=== PATIENT | male | born 1955 | race Two or more races ===

== ENCOUNTER 2020-12-28 10:29 | Outpatient (REF) | payer MEDICARE, MEDICAID, SELFPAY ==
[2020-12-28 11:05] LABS: MANUAL DIFF FLAG NO
[2020-12-28 11:10] LABS: Basophils Absolute Auto 0.1 X10*3/uL (0.0-0.2); Basophils Percent Auto 0.8 % (0-2); Eosinophils Absolute Auto 0.1 X10*3/uL (0.0-0.4); Eosinophils Percent Auto 1.1 % (0-4); Hematocrit 40.8 % (42-52); Hemoglobin 13.2 g/dl (14.0-18.0); Imm Gran Abs Auto 0.02 X10*3/uL (0.00-0.03); Imm Gran Pct Auto 0.3 % (0.0-0.4); Lymphocytes Absolute Auto 3.1 X10*3/uL (1.2-4.9); Mean Corpuscular HGB Conc 32.4 g/dl (31.0-36.0); Mean Corpuscular Hemoglobin 31.6 pg (27.0-33.0); Mean Corpuscular Volume 97.6 fL (80-98); Mean Platelet Volume 10.1 fL (9.4-12.4); Monocytes Absolute Auto 1.1 X10*3/uL (0.1-1.2); Monocytes Percent Auto 14.7 % (2-11); Neutrophils Percent Auto 41.1 % (45-73); Platelet Count 220 X10*3/uL (160-400); Red Blood Count 4.18 X10*6/uL (4.60-5.80); Red Cell Distribution Width 13.8 % (11.0-16.0); White Blood Count 7.3 X10*3/uL (4.8-10.8)
[2020-12-28 11:22] LABS: INTERNATIONAL NORM RATIO 1.1 (0.9-1.1); Prothrombin Time 12.9 SEC (9.9-13.0)
[2020-12-28 11:43] LABS: Alanine Aminotransferase 11 U/L (0-40); Albumin Level 4.2 g/dL (3.5-5.0); Alkaline Phosphatase 63 U/L (39-117); Aspartate Amino Transferase 29 U/L (5-37); Bilirubin Direct 0.2 mg/dL (0.0-0.5); Bilirubin Total 0.4 mg/dL (0.0-1.0); Blood Urea Nitrogen 19 mg/dL (9-16); Estimated Glomerular Filt Rate > 60
[2020-12-28 11:52] LABS: Total Protein 10.6 g/dL (6.5-8.0)
[2020-12-29 12:31] LABS: Alpha Fetoprotein 2.4 ng/mL (<6.1)
[2020-12-31 11:37] LABS: HCV Log PCR <1.18 NOT DETECTED Log IU/mL (NOT DETECTED); HepC Viral Load <15 NOT DETECTED IU/mL (NOT DETECTED)
== END 2020-12-28 10:30 | disposition home or self-care (01) ==
LOC: HO.LAB 10:29
PROVIDERS: Visit Provider Internal Medicine
DX: K76.9 Liver disease, unspecified (principal); R93.2 Abnormal findings on diagnostic imaging of liver and biliary tract; Z86.19 Personal history of other infectious and parasitic diseases
CPT/HCPCS: 36415; 80076; 82105; 82565; 84520; 85025; 85610; 87522

== ENCOUNTER 2021-01-05 08:44 | Outpatient (REF) | payer MEDICARE, MEDICAID, SELFPAY ==
--- NOTE | ~2021-01-05 | MR_ITS ---
EXAMINATION: MR ABDOMEN WITHOUT AND WITH CONTRAST CLINICAL INFORMATION: Pancreatic cyst followup. COMPARISON: Previous abdominal MRIs September 2018 and September 2019 and previous abdominal ultrasounds most recent October 2017 TECHNIQUE: MR abdomen was performed without and with use of 6 mL intravenous Gadavist gadolinium contrast. Postcontrast images are performed in multiphase dynamic sequences. Imaging was performed in 3 planes. MRCP sequences were performed. FINDINGS: LUNG BASES: The visualized lung bases are unremarkable. LIVER, GALLBLADDER, AND BILIARY TREE: The liver is normal in size, smooth in contour, and normal in signal. No focal hepatic lesion or biliary ductal dilatation is present. There are scattered small transient areas of early arterial phase enhancement seen in the liver similar to previous exam. Again, these are seen on early arterial phase sequences and not seen on later phase sequences post-enhancement and not seen on precontrast-enhanced sequences and probably represent transient perfusion effects. There are gallstones in the gallbladder. The gallbladder wall is normal-appearing. There is no pericholecystic fluid. PANCREAS: The cyst in the body of the pancreas adjacent to the main pancreatic duct appears unchanged. No solid component or evidence of enhancement is seen. The main pancreatic duct is normal in caliber. The pancreas is otherwise normal in signal. SPLEEN: Normal. ADRENAL GLANDS: Normal. KIDNEYS AND URETERS: The kidneys are normal in size, shape, and enhance symmetrically. No hydronephrosis. No perinephric stranding. GASTROINTESTINAL TRACT: No bowel obstruction. No ascites or fluid collection. ABDOMINAL WALL: No significant hernia is appreciated. LYMPH NODES: No lymphadenopathy. VASCULAR: Unremarkable. OSSEOUS STRUCTURES: Marrow signal normal. MR/MR abdomen wo/w con IMPRESSION: Stable small cyst in the body of the pancreas from previous exams. Gallstones.
== END 2021-01-05 08:45 | disposition home or self-care (01) ==
LOC: HO.MRI 08:44
PROVIDERS: Visit Provider Internal Medicine
DX: K76.9 Liver disease, unspecified (principal); K86.2 Cyst of pancreas; R93.2 Abnormal findings on diagnostic imaging of liver and biliary tract; Z86.19 Personal history of other infectious and parasitic diseases
CPT/HCPCS: 74183; A9585

== ENCOUNTER 2022-02-28 15:15 | Outpatient (REF) | payer MEDICARE, MEDICAID, SELFPAY ==
[2022-02-28 16:20] LABS: Basophils Absolute Auto 0.1 X10*3/uL (0.0-0.2); Basophils Percent Auto 1.1 % (0-2); Eosinophils Absolute Auto 0.1 X10*3/uL (0.0-0.4); Eosinophils Percent Auto 1.6 % (0-4); Hematocrit 36.6 % (42.0-52.0); Hemoglobin 12.1 g/dl (14.0-18.0); Imm Gran Abs Auto 0.03 X10*3/uL (0.00-0.03); Imm Gran Pct Auto 0.4 % (0.0-0.4); Lymphocytes Absolute Auto 3.2 X10*3/uL (1.2-4.9); Lymphocytes Percent Auto 37.8 % (20-40); MANUAL DIFF FLAG SCAN; Mean Corpuscular HGB Conc 33.1 g/dl (31.0-36.0); Mean Corpuscular Hemoglobin 34.1 pg (27.0-33.0); Mean Corpuscular Volume 103.1 fL (80.0-98.0); Mean Platelet Volume 10.9 fL (9.4-12.4); Monocytes Absolute Auto 0.8 X10*3/uL (0.1-1.2); Monocytes Percent Auto 9.5 % (2-11); Neutrophils Absolute Auto 4.3 x10*3/uL (2.0-8.3); Neutrophils Percent Auto 49.6 % (45-73); Platelet Count 200 X10*3/uL (160-400); Red Blood Count 3.55 X10*6/uL (4.60-5.80); Red Cell Distribution Width 13.1 % (11.0-16.0); SCAN SMEAR FLAG 1; White Blood Count 8.6 X10*3/uL (4.8-10.8)
[2022-02-28 16:23] LABS: INTERNATIONAL NORM RATIO 1.1 (0.9-1.1); Prothrombin Time 12.3 SEC (10.0-13.1)
[2022-02-28 16:45] LABS: Alanine Aminotransferase 10 U/L (0-40); Albumin Level 4.5 g/dL (3.5-5.0); Alkaline Phosphatase 62 U/L (39-117); Aspartate Amino Transferase 21 U/L (5-37); Bilirubin Direct < 0.2 mg/dL (0.0-0.5); Bilirubin Total 0.4 mg/dL (0.0-1.0); Blood Urea Nitrogen 23 mg/dL (9-16); Estimated Glomerular Filt Rate > 60; Total Protein 8.2 g/dL (6.5-8.0)
[2022-02-28 16:48] LABS: SLIDE REVIEW VERIFIED
[2022-03-01 08:56] LABS: Carbohydrate Antigen 19-9 14 U/mL (<34)
[2022-03-02 13:02] LABS: Alpha Fetoprotein 2.4 ng/mL (<6.1)
[2022-03-07 23:51] LABS: FIB-ALT 10 U/L (9-46); FIB-Alpha-2-Macroglobulin 424 mg/dL (106-279); FIB-Apolipoprotein A1 133 mg/dL (94-176); FIB-GGT 11 U/L (3-70); FIB-Haptoglobin 159 mg/dL (43-212); FIB-Total Bilirubin 0.3 mg/dL (0.2-1.2); Liver Fibrosis Score 0.47; Liver Fibrosis Stage F1-F2; Nec Inflam Act Grade A0; Nec Inflam Act Score 0.03
== END 2022-02-28 15:16 | disposition home or self-care (01) ==
LOC: HO.LAB 15:15
PROVIDERS: Visit Provider Internal Medicine
DX: K86.2 Cyst of pancreas (principal); Z86.19 Personal history of other infectious and parasitic diseases
CPT/HCPCS: 36415; 80076; 81596; 82105; 82565; 84520; 85025; 85610; 86301

== ENCOUNTER 2022-04-05 12:42 | Outpatient (REF) | payer MEDICARE, MEDICAID, SELFPAY ==
--- NOTE | ~2022-04-05 | MR_ITS ---
EXAMINATION: MR ABDOMEN WITHOUT AND WITH CONTRAST CLINICAL INFORMATION: Follow-up pancreatic cyst. COMPARISON: MR abdomen 01/05/2021. TECHNIQUE: MR abdomen was performed without and with use of 6 mL intravenous Gadavist gadolinium contrast. Postcontrast images are performed in multiphase dynamic sequences. Imaging was performed in 3 planes. 3-D MRCP images were obtained. FINDINGS: LUNG BASES: The visualized lung bases are unremarkable. LIVER, GALLBLADDER, AND BILIARY TREE: Redemonstration of innumerable arterial phase enhancing liver observations, not seen on later phase postcontrast images and not seen on precontrast sequences, favored to represent transient perfusional abnormalities. There is no significant signal loss in the opposed phase dual echo images to suspect the presence of hepatic steatosis. The liver is normal in shape. Cholelithiasis and fundal gallbladder adenomyomatosis. No gallbladder wall thickening or pericholecystic inflammatory changes. No biliary ductal dilatation. PANCREAS: Evaluation is limited due to motion. A cluster of cysts versus septated T2 bright avascular lesion in the pancreatic body is difficult to accurately measured due to extension across different axial planes and motion, approximately measuring in conjunction 1.2 cm. This is not convincingly changed when compared to priors, dating back to 09/16/2018. There appears to be communication with the main pancreatic duct, best seen on MRCP images and the main pancreatic duct is nondilated. SPLEEN: Splenectomy. ADRENAL GLANDS: Normal. KIDNEYS AND URETERS: The kidneys are normal in size, shape, and enhance symmetrically. No hydronephrosis. No perinephric stranding. GASTROINTESTINAL TRACT: No bowel obstruction. No ascites or fluid collection. ABDOMINAL WALL: No significant hernia is appreciated. LYMPH NODES: No pathologically enlarged lymph nodes. VASCULAR: Abdominal aorta is of normal diameter. OSSEOUS STRUCTURES: Marrow signal normal. MR/MR abdomen wo/w con IMPRESSION: 1. No significant interval change in cluster of cysts versus septated 1.2 cm cystic lesion in the pancreatic body, possibly representing a sidebranch IPMN. Per ACR white paper* on the management of incidental pancreatic cysts, for cysts measuring less than 1.5 cm for patients 65 to 79 years of age at presentation recommendations are: Every other year follow-up with contrast enhanced MR or CT pancreas protocol x5 for a total of 10 years of documented stability. If stable for 10 years, no further follow-up is required. This study documents stability when compared to baseline MR of the abdomen from 09/16/2018. *Thelma AJ, Genia ME, Lee DE, Haresh IR, Sahyne DV, Prashanth E, Maryan WR, Christi LL, Carly PV. Management of Incidental Pancreatic Cysts: A White Paper of the ACR Incidental Findings Committee. J Am Roxanne Radiol. 2017 Jhonathan;14(7):911-923. doi: 10.1016/j.jacr.2017.03.010. Epub 2016October 27. PMID: [id number]. 2. Redemonstration of innumerable arterial phase enhancing liver observations, not seen on later phase postcontrast images and not seen on precontrast enhanced sequences, favoring to represent transient perfusional abnormalities. 3. Cholelithiasis and fundal gallbladder adenomyomatosis.
== END 2022-04-05 12:43 | disposition home or self-care (01) ==
LOC: HO.MRI 12:42
PROVIDERS: Visit Provider Internal Medicine
DX: K86.2 Cyst of pancreas (principal)
CPT/HCPCS: 74183; A9585

== ENCOUNTER 2023-12-17 15:12 | Outpatient (REF) | payer MEDICARE, SELFPAY ==
--- NOTE | ~2023-12-17 | MR_ITS ---
EXAMINATION: MR ABDOMEN WITHOUT AND WITH CONTRAST CLINICAL INFORMATION: Follow up pancreatic cyst. COMPARISON: Abdominal MRI 04/05/2022. TECHNIQUE: MR abdomen was performed without and with use of 6 mL intravenous Gadavist gadolinium contrast. Postcontrast images are performed in multiphase dynamic sequences. Imaging was performed in 3 planes. FINDINGS: LUNG BASES: The visualized lung bases are unremarkable. LIVER, GALLBLADDER, AND BILIARY TREE: Redemonstration of innumerable predominantly peripherally situated arterially hyperenhancing foci that are not visualized on later phases of contrast and do not demonstrate clear T2 correlates, most suggestive of perfusional abnormalities. Cholelithiasis. No significant gallbladder wall thickening or pericholecystic inflammatory changes to suspect acute cholecystitis. PANCREAS: The quite complex multiseptated, lobulated T2 hyperintense cystic-appearing abnormality in the pancreatic body is increased in size measuring approximately 3.4 x 1.7 x 2.7 cm (4:14 and 3:21) previously 1.2 x 0.6 x 1.6 cm. On post contrast images there is suggestion of associated low-level enhancement (images 47 and 49 series 100) and on T2 images there is heterogeneous intermediate T2 internal signal intensity. Downstream from this, there is new abrupt cut off of the main pancreatic duct with new significant downstream tortuosity and dilatation of the main pancreatic duct measuring up to 0.8 cm in diameter, as well as increased downstream pancreatic parenchyma atrophy. Upstream from these findings, the main pancreatic duct and pancreatic parenchyma at the level of the neck, head and uncinate process are normal in appearance. SPLEEN: Splenectomy. ADRENAL GLANDS: Normal. KIDNEYS AND URETERS: A few subcentimeter T2 hyperintense simple-appearing cysts for which no imaging followup is recommended. GASTROINTESTINAL TRACT: No evidence of bowel obstruction or ascites. ABDOMINAL WALL: No significant hernia is appreciated. LYMPH NODES: No lymphadenopathy. VASCULAR: Unremarkable. OSSEOUS STRUCTURES: No acute or aggressive-appearing osseous findings. ADDITIONAL FINDINGS: Enlarged prostate with protrusion of the central gland into the bladder base (sagittal image 19 series 5). MR/MR abdomen wo/w con IMPRESSION: Complex abnormal pancreas with findings that are highly concerning for malignancy at the level of the body where there is abrupt cut off of the duct with downstream ductal dilatation and parenchymal atrophy. Findings might be related with de alice pancreatic adenocarcinoma or malignant transformation of a mucinous neoplasm, as the transition point is at the site of an increased quite complex cystic lesion. Redemonstration of innumerable arterially hyperenhancing foci with a predominant peripheral distribution, not seen on later phases of contrast and without clear T2 correlate, possible related with perfusional changes. Attention on followup in future examinations is recommended. GI/pancreatologist Oncology consultation is advised. The report will be called to the ordering clinician by a [facility] Physician Testing Coordinator.
[2023-12-17] MEDS: gadobutroL 7.5 ML VIAL IVPUSH (16:08)
[2023-12-17 16:37] LABS: MANUAL DIFF FLAG NO
[2023-12-17 17:12] LABS: Basophils Absolute Auto 0.1 X10*3/uL (0.0-0.2); Eosinophils Absolute Auto 0.2 X10*3/uL (0.0-0.4); Eosinophils Percent Auto 2.1 % (0-4); Hemoglobin 11.6 g/dl (14.0-18.0); Imm Gran Abs Auto 0.02 X10*3/uL (0.00-0.03); Imm Gran Pct Auto 0.2 % (0.0-0.4); Lymphocytes Absolute Auto 2.8 X10*3/uL (1.2-4.9); Lymphocytes Percent Auto 33.4 % (20-40); Mean Corpuscular HGB Conc 34.1 g/dl (31.0-36.0); Mean Corpuscular Volume 99.7 fL (80.0-98.0); Mean Platelet Volume 10.7 fL (9.4-12.4); Monocytes Absolute Auto 0.9 X10*3/uL (0.1-1.2); Monocytes Percent Auto 10.9 % (2-11); Neutrophils Absolute Auto 4.3 x10*3/uL (2.0-8.3); Neutrophils Percent Auto 52.4 % (45-73); Platelet Count 203 X10*3/uL (160-400); Red Blood Count 3.41 X10*6/uL (4.60-5.80); Red Cell Distribution Width 14.3 % (11.0-16.0); White Blood Count 8.2 X10*3/uL (4.8-10.8)
[2023-12-17 17:24] LABS: Prothrombin Time 12.6 SEC (11.1-13.3)
[2023-12-17 17:58] LABS: Alanine Aminotransferase 12 U/L (0-40); Albumin Level 4.4 g/dL (3.5-5.0); Alkaline Phosphatase 52 U/L (39-117); Aspartate Amino Transferase 20 U/L (5-37); Bilirubin Direct 0.1 mg/dL (0.0-0.5); Bilirubin Total 0.3 mg/dL (0.0-1.0); Blood Urea Nitrogen 36 mg/dL (9-16); Estimated Glomerular Filt Rate 53; Total Protein 7.8 g/dL (6.5-8.0)
[2023-12-19 09:13] LABS: Carbohydrate Antigen 19-9 20 U/mL (<34)
[2023-12-19 09:47] LABS: Alpha Fetoprotein 2.4 ng/mL (<6.1)
[2023-12-19 11:18] LABS: HCV Log PCR <1.18 NOT DETECTED Log IU/mL (NOT DETECTED); HepC Viral Load <15 NOT DETECTED IU/mL (NOT DETECTED)
[2023-12-27 17:43] LABS: FIB-ALT 10 U/L (9-46); FIB-Alpha-2-Macroglobulin 360 mg/dL (106-279); FIB-Apolipoprotein A1 140 mg/dL (94-176); FIB-GGT 13 U/L (3-70); FIB-Haptoglobin 141 mg/dL (43-212); FIB-Total Bilirubin 0.3 mg/dL (0.2-1.2); Liver Fibrosis Score 0.42; Liver Fibrosis Stage F1-F2; Nec Inflam Act Grade A0; Nec Inflam Act Score 0.03
== END 2023-12-17 15:13 | disposition home or self-care (01) ==
LOC: HO.MRI 15:12
PROVIDERS: Visit Provider Internal Medicine
DX: K86.2 Cyst of pancreas (principal); K76.9 Liver disease, unspecified; R93.2 Abnormal findings on diagnostic imaging of liver and biliary tract; Z86.19 Personal history of other infectious and parasitic diseases
CPT/HCPCS: 36415; 74183; 80076; 81596; 82105; 82565; 84520; 85025; 85610; 86301; 87522; A9585

== ENCOUNTER 2025-03-19 08:26 | Outpatient (REF) | payer OTHER, SELFPAY ==
[2025-03-19 08:44] LABS: MANUAL DIFF FLAG NO
[2025-03-19 09:04] LABS: Hematocrit 38.2 % (42.0-52.0); Hemoglobin 13.0 g/dl (14.0-18.0); Imm Gran Abs Auto 0.02 X10*3/uL (0.00-0.03); Imm Gran Pct Auto 0.3 % (0.0-0.4); Lymphocytes Absolute Auto 2.1 X10*3/uL (1.2-4.9); Mean Corpuscular HGB Conc 34.0 g/dl (31.0-36.0); Mean Corpuscular Hemoglobin 34.5 pg (27.0-33.0); Mean Corpuscular Volume 101.3 fL (80.0-98.0); NRBC Abs Auto 0.000 X10*3/uL (0.0-0.012); NRBC Pct Auto 0.0 /100WBC (0.0-0.2); Platelet Count 250 X10*3/uL (160-400); Red Blood Count 3.77 X10*6/uL (4.60-5.80); White Blood Count 6.7 X10*3/uL (4.8-10.8)
[2025-03-19 09:09] LABS: INTERNATIONAL NORM RATIO 1.1 (0.9-1.1); Prothrombin Time 12.1 SEC (10.9-12.4)
[2025-03-19 09:40] LABS: Alanine Aminotransferase 13 U/L (0-40); Albumin Level 4.8 g/dL (3.5-5.0); Alkaline Phosphatase 66 U/L (39-117); Anion Gap 9 (12-20); Aspartate Amino Transferase 26 U/L (5-37); Blood Urea Nitrogen 16 mg/dL (9-16); Calcium 9.6 mg/dL (8.4-10.2); Carbon Dioxide 28 mmol/L (22-29); Chloride 108 mmol/L (96-108); Estimated Glomerular Filt Rate > 60; Potassium 4.2 mmol/L (3.3-5.1); Sodium 141 mmol/L (135-145); Total Protein 8.0 g/dL (6.5-8.0)
[2025-03-24 13:38] LABS: FIB-ALT 7 U/L (9-46); FIB-Alpha-2-Macroglobulin 418 mg/dL (106-279); FIB-Apolipoprotein A1 160 mg/dL (94-176); FIB-GGT 11 U/L (3-70); FIB-Haptoglobin 131 mg/dL (43-212); FIB-Total Bilirubin 0.4 mg/dL (0.2-1.2); Liver Fibrosis Score 0.49; Liver Fibrosis Stage F2; Nec Inflam Act Grade A0; Nec Inflam Act Score 0.02
== END 2025-03-19 08:27 | disposition home or self-care (01) ==
LOC: HO.LAB 08:26
PROVIDERS: Visit Provider Internal Medicine
DX: Z51.81 Encounter for therapeutic drug level monitoring (principal); K86.2 Cyst of pancreas; R93.2 Abnormal findings on diagnostic imaging of liver and biliary tract; Z86.19 Personal history of other infectious and parasitic diseases
CPT/HCPCS: 36415; 80048; 80076; 81596; 82105; 85025; 85610; 86301

== ENCOUNTER 2025-04-07 11:07 | Outpatient (REF) | payer OTHER, SELFPAY ==
--- NOTE | ~2025-04-07 | MR_ITS ---
CLINICAL HISTORY: CHRONIC HEP C PANCREAS CYST ABN MRI MR abdomen with and without gadolinium Comparison: MR/RI/SR - MR ABDOMEN WITHOUT THEN WITH IV CONTRAST - 12/17/23 15:53 EDT MR/RI/SR - MR ABDOMEN WITHOUT THEN WITH IV CONTRAST - 04/05/22 13:30 EDT Findings: Examination degraded by motion artifact. Lung bases are clear. Heart size is normal. Previously described enhancing peripheral foci within the hepatic parenchyma are not seen on the current examination. Biliary tree is within normal limits. Multiple calculi within the gallbladder lumen. Pancreas divisum is present. There is pancreatic body and tail atrophy as before with dilatation of the pancreatic duct measuring 9 mm, as before. There is abrupt cutoff of the pancreatic duct within the body, as before. Previously seen cystic pancreatic foci within the body are unchanged measuring roughly 15 mm diameter. 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 Adrenals and kidneys are normal in appearance. Visualized bowel loops and vasculature are normal in caliber. No adenopathy. Visualized osseous structures are normal in appearance. IMPRESSION: 1. No significant change in pancreatic tail atrophy and ductal dilatation, worrisome for underlying neoplasm. Stable cystic pancreatic focus. 2. Cholelithiasis. This document has been electronically signed by: Rashard Murphy MD on 04/08/2025 14:51:32
== END 2025-04-07 11:08 | disposition home or self-care (01) ==
LOC: HO.MRI 11:07
PROVIDERS: Visit Provider Internal Medicine
DX: B18.2 Chronic viral hepatitis C (principal); K86.2 Cyst of pancreas; R93.2 Abnormal findings on diagnostic imaging of liver and biliary tract; Q45.3 Other congenital malformations of pancreas and pancreatic duct
CPT/HCPCS: 74183; A9585

== ENCOUNTER → 2025-04-07 11:34 | Outpatient (BNV) | payer OTHER, SELFPAY | PROVIDERS: Visit Provider Radiology Diagnostic Radiology | DX: K86.2 Cyst of pancreas (principal); K80.20 Calculus of gallbladder without cholecystitis without obstruction | CPT/HCPCS: 74183 ==